=== PATIENT | male | born 1990 | race Hispanic/Latino ===

== ENCOUNTER 2019-04-01 17:04 | Emergency (ER) | payer OTHER, SELFPAY ==
--- NOTE | ~2019-04-01 | XR_ITS ---
EXAMINATION: XR knee RT 3V DATE: 04/01/2019 17:57 INDICATION: Right knee pain post fall TECHNIQUE: Anteroposterior, 2 oblique and crosstable lateral views of the right knee were obtained COMPARISON: None. FINDINGS: Alignment is normal. No fracture. Spaces appear normal on nonweightbearing imaging. No joint effusio n/layering lipohemarthrosis. Soft tissues are unremarkable. IMPRESSION: 1. Negative right knee radiographs. Reviewed, dictated and finalized at location [facility]
[2019-04-01 17:30] VITALS: BP 124/74; PULSE 105; RESP 20; TEMP 37.1; O2SAT 96
--- NOTE | 2019-04-01 17:56 | ED.GENADULT ---
HPI - General Adult General Chief complaint: Upper Respiratory Infection Stated complaint: R KNEE INJURY/FEVER Time Seen by Provider: 04/01/19 17:56 Source: patient and RN notes reviewed Mode of arrival: ambulatory Limitations: no limitations History of Present Illness HPI narrative: This patient has 2 different problems the first is that he began having sinus symptoms with head congestion and clear nasal drainage and a slight sore throat yesterday on 03/31/2019. He has not had any ear pain. He has not had any cough. Is had no sore throat. He has not noticed any fever. He has had no nausea, no vomiting, no diarrhea. He said no hematuria, no dysuria, no pyuria. He has had no known exposure to anyone with strep throat, mono, influenza, bronchitis, pneumonia that he is aware of. The second problem is that the patient on 03/30/2019 slipped on ice at his home and felt a popping sensation over the lateral aspect the right knee. He has been able to bear weight on it. It does not click, lock, or give out on him. There is no numbness or tingling sensation in the leg. It is not appeared swollen. He is taken OTC medications for this without improvement. He has not had any fractures of his knee in the past or any torn ligaments or cartilage. He did not sustain any other injuries. Related Data Home Medications Medication Instructions Recorded Confirmed acetaminophen [Tylenol] 325 mg PO ONCE PRN 04/01/19 04/01/19 Allergies Allergy/AdvReac Type Severity Reaction Status Date / Time No Known Allergies Allergy Verified 04/01/19 17:43 Review of Systems Review of Systems: Narrative: CONSTITUTIONAL: Denies fever, chills, or sweats. Noncontributory except as pertains to the past medical history and history of present illness. EYES: Denies visual changes, redness, or discharge. ENT: Denies rhinorrhea, congestion, sore throat, or otalgia. CARDIOVASCULAR: Denies chest pain, palpitations, or edema. RESPIRATORY: Denies cough or dyspnea. GASTROINTESTINAL: Denies abdominal pain, nausea, vomiting, or diarrhea. GENITOURINARY: Denies dysuria or hematuria. SKIN: Denies rash or itching. MUSCULOSKELETAL: Denies back pain, joint pain, or myalgia. NEUROLOGIC: Denies headache, numbness, or weakness. PSYCHIATRIC: Denies anxiety or depression. PMFSH Comments At time of signature, I have reviewed and agree with nursing past medical, surgical, social, and family history.Please see nursing chart for further information. There is no relevant family history pertinent to the presenting complaint. Exam Narrative: Exam Narrative: GENERAL: Well-appearing, well-nourished, and in no acute distress. HEAD: Normocephalic, atraumatic. There is no palpation tenderness over the frontal, maxillary, mastoid sinus areas. No adenopathy of the neck, supraclavicular, axillary, or inguinal areas. EYES: PERRLA and EOMI. EARS: TM's clear bilaterally and the canals are clear. NOSE: Nares have mild edema of the nasal mucosa but no purulent nasal drainage or postnasal drip. THROAT:Mucous membranes moist.Oropharynx Normal without erythema or exudates. NECK: Supple. No adenopathy of the neck, supraclavicular, axillary, or inguinal areas. RESPIRATORY: No respiratory distress. Airway patent. Respirations non-labored. Clear to auscultation. There are no wheezes, no rales, no retractions, no use accessory muscle respirations. Patient's not cyanotic and not dyspneic. His pulse ox on room air is 96%. HEART: Regular rate and rhythm. No murmur heard. Normal peripheral pulses. ABDOMEN: Soft, nontender, nondistended, normal active bowel sounds.No masses. No rebound or guarding, No organomegaly. There is no CVA pain. No pain McBurney's point. There is a negative Dai sign and negative Rovsing sign. There are no pulsatile masses no audible bruits. No skin rash or skin lesions. He is well-nourished well-hydrated has moist mucous membranes and no tenting of the skin. EXTREMITIES: No
== END 2019-04-01 19:05 | disposition home or self-care (01) ==
PROVIDERS: Emergency Provider Family Medicine
DX: J11.1 Influenza due to unidentified influenza virus with other respiratory manifestations (principal); S86.911A Strain of unspecified muscle(s) and tendon(s) at lower leg level, right leg, initial encounter; W00.0XXA Fall on same level due to ice and snow, initial encounter
CPT/HCPCS: 73562; 87804; 99203; G0463